=== PATIENT | male | born 1975 | race Caucasian/White ===

== ENCOUNTER 2021-12-25 09:37 | Observation (INO) ==
[2021-12-25] MEDS ORDERED: 0.9 % Sodium Chloride 1,000 ML IVC ONE (10:58)
[2021-12-25] MEDS ORDERED: Isovue-370 500 ML BOTTLE IVP ONE (10:58)
[2021-12-25] MEDS ORDERED: Morphine Sulfate 2 MG/ML SYRINGE IVP STA (10:58)
[2021-12-25 11:38] LABS: Basophils # 0.1 K/mcL (0.0-0.2); Basophils % 0.4 %; Eosinophils # 0.2 K/mcL (0.0-0.6); Eosinophils % 1.5 %; Hemoglobin 14.8 g/dL (12.9-16.9); Immature Granulocytes % 0.6 % (0-4); Lymphocytes # 2.4 K/mcL (0.6-4.6); Lymphocytes % 20.4 %; Mean Corpuscular HGB Conc 32.9 g/dL (31.6-35.5); Mean Corpuscular Hemoglobin 26.9 pg (28.0-33.3); Mean Corpuscular Volume 81.7 fL (83.0-100.0); Mean Platelet Volume 8.9 fL (9.4-12.4); Monocytes # 0.9 K/mcL (0.0-1.3); Monocytes % 7.8 %; Neutrophils # 8.1 K/mcL (1.6-8.9); Platelet Count 270 K/mcL (140-400); Red Blood Count 5.51 M/mcL (4.19-5.50); Red Cell Distribution Width 12.7 % (11.5-14.5); Segmented Neutrophils % 69.3 %; White Blood Count 11.7 K/mcL (4.3-11.1)
[2021-12-25 11:50] LABS: INR 0.9; Prothrombin Time 10.3 Seconds (9.4-12.1)
[2021-12-25 11:52] LABS: Activated Partial Thrombo Time 34.5 Seconds (26.0-36.0)
[2021-12-25 12:00] LABS: Alanine Aminotransferase 25 Units/L (7-52); Albumin 4.2 g/dL (3.5-5.7); Albumin/Globulin Ratio 1.6 (1.1-2.2); Alkaline Phosphatase 82 Units/L (34-104); Amylase 22 Units/L (29-103); Aspartate Amino Transferase 13 Units/L (13-39); BUN/Creatinine Ratio 18 (6-26); Bilirubin,Indirect 0.4 mg/dL (0.0-1.0); Bilirubin,Total 0.4 mg/dL (0.3-1.0); Blood Urea Nitrogen 16 mg/dL (6-20); Calcium 9.5 mg/dL (8.6-10.3); Carbon Dioxide 25 mEq/L (23-29); Chloride 96 mEq/L (98-107); Globulin 2.7 g/dL (2.4-3.5); Glucose 311 mg/dL (70-105); Lipase 5 Units/L (11-82); Osmolality,Calculated 291 (280-300); Potassium 3.9 mEq/L (3.5-5.1); Sodium 134 mEq/L (136-145); Total Protein 6.9 g/dL (6.4-8.9); Troponin I 0.03 ng/mL (< 0.04); eGFR For African Americans > 60 (> 60); eGFR For Non-African Americans > 60 (> 60)
[2021-12-25 13:08] LABS: Bilirubin,Urine Negative (Negative); Blood,Urine Negative (Negative); Clarity,Urine Clear (Clear); Color,Urine Light-Yellow (Yellow); Glucose,Urine (UA) >=1000 mg/dL (Normal); Ketones,Urine 40 mg/dL (Negative); Leukocyte Esterase,Urine Negative (Negative); Nitrite,Urine Negative (Negative); PH,Urine 6.5 pH Units (5.0-8.0); Protein,Urine Trace mg/dL (Neg-Trace); RBC,Urine 0-3 per hpf (0-3); Specific Gravity,Urine > 1.030 (1.010-1.025); Squamous Epithelial Cell,Urine Few per hpf (None-Few); Urobilinogen,Urine Normal (Normal); WBC,Urine 0-3 per hpf (0-3)
[2021-12-25] MEDS ORDERED: hydrALAZINE 10 MG TABLET PO ONE (13:22)
[2021-12-25] MEDS ORDERED: Ondansetron 4 MG/2 ML VIAL IVP PRN (13:40)
[2021-12-25] MEDS ORDERED: Naloxone 0.4 MG/ML INJ IVP PRN (13:40)
[2021-12-25] MEDS ORDERED: *HR* Dextrose 50 % in Water (Syg) 50 ML SYRINGE IVP PRN (13:42)
[2021-12-25] MEDS ORDERED: Dextrose Gel 15 GM/37.5 ML TUBE PO PRN ×2 (13:42)
[2021-12-25] MEDS ORDERED: D5% in Water 1,000 ML IVC PRN (13:42)
[2021-12-25] MEDS ORDERED: *HR* HYDROmorphone (PF) 1 MG/ML SYRINGE IVP STA (13:44)
[2021-12-25] MEDS ORDERED: Piperacillin/Tazobactam 3.375 GM in 0.9 % Sodium Chloride Mini Bag 100 ML IVPB ONE (13:44)
[2021-12-25] MEDS ORDERED: 0.9 % Sodium Chloride 1,000 ML IVC SCH (13:45)
[2021-12-25 14:55] LABS: Influenza A PCR Negative (Negative); Influenza B PCR Negative (Negative); Resp. Syncytial Virus PCR Negative (Negative); SARS-CoV-2 by PCR (In House) Negative (Negative)
[2021-12-25] MEDS ORDERED: Insulin LISPRO 300 UNITS/3 ML VIAL SUBQ SCH (16:30)
[2021-12-25] MEDS ORDERED: *HR* HYDROmorphone (PF) 1 MG/ML SYRINGE IVP ONE (19:47)
[2021-12-25] MEDS: Nicotine 21 MG PATCH.TD24 TD SCH (20:55)
[2021-12-25] MEDS: 0.9 % Sodium Chloride 1,000 ML IVC SCH (22:51)
[2021-12-25] MEDS: Acetaminophen IV 1,000 MG/100 ML BAG IVPB SCH (22:51)
[2021-12-26] MEDS: Insulin LISPRO 300 UNITS/3 ML VIAL SUBQ SCH ×4 (00:45→17:30)
[2021-12-26] MEDS: Acetaminophen IV 1,000 MG/100 ML BAG IVPB SCH ×4 (03:24→21:48)
[2021-12-26 04:33] LABS: Basophils # 0.1 K/mcL (0.0-0.2); Basophils % 0.5 %; Eosinophils # 0.2 K/mcL (0.0-0.6); Eosinophils % 2.1 %; Hematocrit 48.2 % (37.5-50.1); Hemoglobin 15.3 g/dL (12.9-16.9); Immature Granulocytes % 0.5 % (0-4); Lymphocytes # 2.3 K/mcL (0.6-4.6); Lymphocytes % 22.1 %; Mean Corpuscular HGB Conc 31.7 g/dL (31.6-35.5); Mean Corpuscular Hemoglobin 26.6 pg (28.0-33.3); Mean Corpuscular Volume 83.8 fL (83.0-100.0); Monocytes % 9.7 %; Neutrophils # 6.9 K/mcL (1.6-8.9); Platelet Count 278 K/mcL (140-400); Red Blood Count 5.75 M/mcL (4.19-5.50); Red Cell Distribution Width 13.1 % (11.5-14.5); Segmented Neutrophils % 65.1 %; White Blood Count 10.6 K/mcL (4.3-11.1)
[2021-12-26 04:53] LABS: BUN/Creatinine Ratio 13 (6-26); Blood Urea Nitrogen 12 mg/dL (6-20); Calcium 8.5 mg/dL (8.6-10.3); Carbon Dioxide 29 mEq/L (23-29); Chloride 97 mEq/L (98-107); Glucose 226 mg/dL (70-105); Magnesium 2.1 mg/dL (1.6-2.6); Osmolality,Calculated 285 (280-300); Potassium 3.6 mEq/L (3.5-5.1); Sodium 134 mEq/L (136-145); eGFR For African Americans > 60 (> 60); eGFR For Non-African Americans > 60 (> 60)
[2021-12-26] MEDS: 0.9 % Sodium Chloride 1,000 ML IVC SCH ×2 (06:10→21:46)
[2021-12-26] MEDS ORDERED: Lidocaine HCL 4 ML Topical Solution (Laryng-O-Jet Kit Sterile Pak) TP ONE (07:13)
[2021-12-26] MEDS ORDERED: Ondansetron 4 MG/2 ML VIAL ONE (07:13)
[2021-12-26] MEDS ORDERED: *HR* Succinylcholine 200 MG/10 ML VIAL IVP ONE (07:13)
[2021-12-26] MEDS ORDERED: *HR* FentaNYL (PF) 100 MCG/2 ML VIAL ONE ×2 (07:13→09:25)
[2021-12-26] MEDS ORDERED: Lidocaine -MPF 2% 5 ML VIAL ONE (07:13)
[2021-12-26] MEDS ORDERED: *HR* Midazolam HCl 2 MG/2 ML VIAL ONE (07:13)
[2021-12-26] MEDS ORDERED: *HR* Rocuronium Bromide 50 MG/5 ML VIAL ONE ×2 (07:13→09:49)
[2021-12-26] MEDS ORDERED: *HR* Propofol 200 MG/20 ML VIAL IVP ONE (07:14)
[2021-12-26] MEDS ORDERED: CeFAZolin Syr 3,000MG/30 ML 3,000 MG/30 ML SYRINGE IVPB ONE (08:25)
[2021-12-26] MEDS ORDERED: Ketamine HCL *QUVA* 50mg (1mL) SYRINGE ONE (09:23)
[2021-12-26] MEDS ORDERED: Acetaminophen IV 1,000 MG/100 ML BAG IVPB ONE (09:27)
[2021-12-26] MEDS ORDERED: EPHEDrine 50 MG/ML VIAL ONE (09:29)
[2021-12-26] MEDS ORDERED: *HR* Phenylephrine 10 MG/ML VIAL ONE (09:59)
[2021-12-26] MEDS ORDERED: *HR* HYDROMORPHONE 2 MG/ML VIAL ONE (11:24)
[2021-12-26] MEDS ORDERED: ROPIVACAINE/PF/NS 0.25% 1 EACH SYRINGE INTRAART ONE (11:25)
[2021-12-26 12:09] LABS: Estimated Average Glucose 344 mg/dl; Hemoglobin A1C 13.6 %
[2021-12-26] MEDS ORDERED: *HR* HYDROmorphone PF 0.5 MG/0.5 ML SYRINGE IVP PRN (12:09)
[2021-12-26] MEDS ORDERED: *HR* FentaNYL (PF) 100 MCG/2 ML VIAL IVP PRN (12:09)
[2021-12-26] MEDS ORDERED: *HR* Labetalol 20 MG/4 ML SYRINGE IVP ONE (12:12)
[2021-12-26] MEDS: *HR* Labetalol 20 MG/4 ML SYRINGE IVP PRN ×4 (12:12→12:30)
[2021-12-26] MEDS ORDERED: Ringers Solution, Lactated 1,000 ML ONE (12:48)
[2021-12-26] MEDS: Nicotine 21 MG PATCH.TD24 TD SCH (14:18)
[2021-12-26] MEDS ORDERED: Naloxone 0.4 MG/ML INJ IVP PRN (16:26)
[2021-12-26] MEDS ORDERED: Dextrose Gel 15 GM/37.5 ML TUBE PO PRN ×2 (16:26)
[2021-12-26] MEDS ORDERED: Ondansetron 4 MG/2 ML VIAL IVP PRN (16:26)
[2021-12-26] MEDS ORDERED: *HR* Dextrose 50 % in Water (Syg) 50 ML SYRINGE IVP PRN (16:26)
[2021-12-26] MEDS ORDERED: D5% in Water 1,000 ML IVC PRN (16:26)
[2021-12-26] MEDS: Ketorolac 30 MG/ML VIAL IVP SCH (17:30)
[2021-12-26] MEDS ORDERED: Insulin LISPRO 300 UNITS/3 ML VIAL SUBQ SCH ×2 (18:00→21:00)
[2021-12-27] MEDS: Ketorolac 30 MG/ML VIAL IVP SCH ×4 (00:10→17:51)
[2021-12-27] MEDS: Acetaminophen IV 1,000 MG/100 ML BAG IVPB SCH ×3 (05:45→15:25)
[2021-12-27] MEDS: 0.9 % Sodium Chloride 1,000 ML IVC SCH ×3 (06:47→15:25)
[2021-12-27 08:36] LABS: Basophils % 0.1 %; Eosinophils # 0.1 K/mcL (0.0-0.6); Eosinophils % 0.6 %; Hematocrit 42.3 % (37.5-50.1); Immature Granulocytes % 0.6 % (0-4); Lymphocytes # 1.6 K/mcL (0.6-4.6); Lymphocytes % 10.1 %; Mean Corpuscular HGB Conc 32.4 g/dL (31.6-35.5); Mean Corpuscular Hemoglobin 27.1 pg (28.0-33.3); Mean Corpuscular Volume 83.8 fL (83.0-100.0); Mean Platelet Volume 8.7 fL (9.4-12.4); Monocytes # 1.3 K/mcL (0.0-1.3); Monocytes % 8.4 %; Neutrophils # 12.6 K/mcL (1.6-8.9); Platelet Count 260 K/mcL (140-400); Red Blood Count 5.05 M/mcL (4.19-5.50); Segmented Neutrophils % 80.2 %; White Blood Count 15.7 K/mcL (4.3-11.1)
[2021-12-27 08:45] LABS: Hemoglobin 13.7 g/dL (12.9-16.9)
[2021-12-27 08:53] LABS: BUN/Creatinine Ratio 19 (6-26); Blood Urea Nitrogen 15 mg/dL (6-20); Calcium 8.5 mg/dL (8.6-10.3); Carbon Dioxide 21 mEq/L (23-29); Chloride 101 mEq/L (98-107); Glucose 220 mg/dL (70-105); Osmolality,Calculated 282 (280-300); Potassium 4.1 mEq/L (3.5-5.1); Sodium 132 mEq/L (136-145); eGFR For African Americans > 60 (> 60); eGFR For Non-African Americans > 60 (> 60)
[2021-12-27] MEDS ORDERED: Nicotine 21 MG PATCH.TD24 TD SCH (09:00)
[2021-12-27] MEDS ORDERED: lisinopriL 20 MG TABLET PO SCH (09:00)
[2021-12-27] MEDS: Insulin LISPRO 300 UNITS/3 ML VIAL SUBQ SCH ×3 (09:02→16:37)
[2021-12-27 15:28] VITALS: BP 166/73; PULSE 82; TEMP 98.7; O2SAT 98
== END 2021-12-27 18:08 | disposition home or self-care (01) ==
LOC: EMEROOARM 09:37 → 3ANU 09:37
PROVIDERS: ADMIT Student in an Organized Health Care Education/Training Program; ATTEND Student in an Organized Health Care Education/Training Program